=== PATIENT | female | born 1955 | race Caucasian/White ===

== ENCOUNTER 2017-11-20 22:27 | Emergency (ER) | payer OTHER, MEDICAID ==
[~2017-11-20] VITALS: Ht 167.6 cm; Wt 85.0 kg
[2017-11-20 22:27] VITALS: BP 111/66; PULSE 75; RESP 16; TEMP 97.9; O2SAT 97
[~2017-11-20 22:27] MED LIST: CRES10TA PO; IRBE150T51 PO; LORA1TAB PO
[2017-11-20] MEDS ORDERED: TETANUS/DIPHTHERIA TOXOID ADULT 0.5 ML VIAL IM ONE (22:30)
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
[2017-11-20 23:45] VITALS: BP 116/70; PULSE 78; RESP 16; O2SAT 99
[2017-11-20] MEDS ORDERED: TRAM50 PO (23:55)
[2017-11-21 00:42] VITALS: BP 112/68
== END 2017-11-21 00:44 | disposition home or self-care (01) ==
LOC: PHED 22:27
DX: S42.141A Displaced fracture of glenoid cavity of scapula, right shoulder, initial encounter for closed fracture (principal); S80.212A Abrasion, left knee, initial encounter; S80.211A Abrasion, right knee, initial encounter; S60.222A Contusion of left hand, initial encounter; I10 Essential (primary) hypertension; E78.00 Pure hypercholesterolemia, unspecified; Z23 Encounter for immunization; Z72.0 Tobacco use; V49.9XXA Car occupant (driver) (passenger) injured in unspecified traffic accident, initial encounter
CPT/HCPCS: 29240; 70450; 72125; 73030; 73130; 90471; 90714